=== PATIENT | male | born 1995 | race Native Hawaiian/Other Pacific Islander ===

== ENCOUNTER 2017-06-08 14:18 | Emergency (ER) | payer OTHER ==
[~2017-06-08] VITALS: Ht 167.6 cm; Wt 89.4 kg
== END 2017-06-08 16:42 | disposition home or self-care (01) ==
LOC: ED 14:18
DX: S67.191A Crushing injury of left index finger, initial encounter (principal); W23.0XXA Caught, crushed, jammed, or pinched between moving objects, initial encounter; Y92.098 Other place in other non-institutional residence as the place of occurrence of the external cause
CPT/HCPCS: 96372; 99283; J1170; J7040

== ENCOUNTER 2019-11-30 19:37 | Outpatient (CLI) | payer OTHER ==
[2019-11-30 21:07] LABS: PLATELET COUNT 216 K/uL (142-355)
[2019-11-30 21:18] LABS: POTASSIUM 3.9 mmol/L (3.6-5.2)
== END 2019-11-30 21:34 | disposition home or self-care (01) ==
LOC: LABW 19:37
PROVIDERS: Internal Medicine Hematology & Oncology
DX: C71.6 Malignant neoplasm of cerebellum (principal)
CPT/HCPCS: 36415; 80053; 83735; 85027

== ENCOUNTER 2019-12-14 18:47 | Outpatient (CLI) | payer OTHER ==
[2019-12-14 19:03] LABS: PLATELET COUNT 220 K/uL (142-355)
[2019-12-14 23:55] LABS: POTASSIUM 4.1 mmol/L (3.6-5.2)
== END 2019-12-14 19:43 | disposition home or self-care (01) ==
LOC: LABW 18:47
PROVIDERS: Internal Medicine Hematology & Oncology
DX: C71.6 Malignant neoplasm of cerebellum (principal)
CPT/HCPCS: 36415; 80053; 83735; 85027

== ENCOUNTER 2020-01-20 19:42 | Outpatient (CLI) | payer OTHER | END 2020-01-20 20:51 | disposition home or self-care (01) | LOC: LABW 19:42 | PROVIDERS: Internal Medicine Hematology & Oncology | DX: C71.6 Malignant neoplasm of cerebellum (principal) | CPT/HCPCS: 36415; 80053 ==

== ENCOUNTER 2020-02-17 18:08 | Outpatient (CLI) | payer OTHER ==
[2020-02-17 19:17] LABS: PLATELET COUNT 177 K/uL (142-355)
== END 2020-02-17 19:24 | disposition home or self-care (01) ==
LOC: LABW 18:08
PROVIDERS: Internal Medicine Hematology & Oncology
DX: C71.6 Malignant neoplasm of cerebellum (principal)
CPT/HCPCS: 36415; 80053; 85007; 85027

== ENCOUNTER 2020-04-04 12:07 | Outpatient (CLI) | payer OTHER ==
[2020-04-04 12:46] LABS: PLATELET COUNT 16 K/uL (142-355)
== END 2020-04-04 19:27 | disposition home or self-care (01) ==
LOC: LABW 12:07
PROVIDERS: Internal Medicine Hematology & Oncology
DX: D61.810 Antineoplastic chemotherapy induced pancytopenia (principal)
CPT/HCPCS: 36415; 85007; 85027

== ENCOUNTER 2020-05-10 13:56 | Outpatient (CLI) | payer OTHER | END 2020-05-10 23:55 | disposition home or self-care (01) | LOC: LABW 13:56 → US 13:56 | DX: R74.8 Abnormal levels of other serum enzymes (principal); R11.2 Nausea with vomiting, unspecified; R63.4 Abnormal weight loss; C71.6 Malignant neoplasm of cerebellum ==

== ENCOUNTER 2020-06-08 13:43 | Outpatient (CLI) | payer OTHER ==
[2020-06-08 14:10] LABS: PLATELET COUNT 104 K/uL (142-355)
[2020-06-08 14:36] LABS: POTASSIUM 4.7 mmol/L (3.6-5.2)
== END 2020-06-08 21:33 | disposition home or self-care (01) ==
LOC: LAB 13:43
PROVIDERS: Internal Medicine
DX: E43 Unspecified severe protein-calorie malnutrition (principal)
CPT/HCPCS: 80053; 83735; 84100; 84134; 84478; 85007; 85027

== ENCOUNTER 2020-06-15 14:21 | Outpatient (CLI) | payer OTHER ==
[2020-06-15 15:10] LABS: PLATELET COUNT 116 K/uL (142-355)
[2020-06-15 18:04] LABS: POTASSIUM 4.3 mmol/L (3.6-5.2)
== END 2020-06-15 20:28 | disposition home or self-care (01) ==
LOC: LAB 14:21
PROVIDERS: Internal Medicine
DX: E43 Unspecified severe protein-calorie malnutrition (principal)
CPT/HCPCS: 80053; 83735; 84100; 85027

== ENCOUNTER 2020-06-22 13:45 | Outpatient (CLI) | payer OTHER ==
[2020-06-22 13:54] LABS: PLATELET COUNT 130 K/uL (142-355)
[2020-06-22 14:18] LABS: POTASSIUM 4.2 mmol/L (3.6-5.2)
== END 2020-06-22 19:10 | disposition home or self-care (01) ==
LOC: LAB 13:45
PROVIDERS: Internal Medicine
DX: E43 Unspecified severe protein-calorie malnutrition (principal)
CPT/HCPCS: 80053; 83735; 84100; 85027

== ENCOUNTER 2020-07-01 13:54 | Outpatient (CLI) | payer OTHER ==
[2020-07-01 14:32] LABS: POTASSIUM 3.9 mmol/L (3.6-5.2)
[2020-07-01 15:12] LABS: PLATELET COUNT 150 K/uL (142-355)
== END 2020-07-01 20:03 | disposition home or self-care (01) ==
LOC: LAB 13:54
PROVIDERS: Internal Medicine Gastroenterology
DX: E43 Unspecified severe protein-calorie malnutrition (principal)
CPT/HCPCS: 80053; 82248; 83735; 84100; 85027; 85610

== ENCOUNTER 2020-07-06 11:08 | Outpatient (CLI) | payer OTHER ==
[2020-07-06 11:23] LABS: PLATELET COUNT 137 K/uL (142-355)
[2020-07-06 11:29] LABS: POTASSIUM 3.9 mmol/L (3.6-5.2)
== END 2020-07-06 19:45 | disposition home or self-care (01) ==
LOC: LAB 11:08
PROVIDERS: Internal Medicine
DX: E43 Unspecified severe protein-calorie malnutrition (principal)
CPT/HCPCS: 80053; 83735; 84134; 84478; 85027

== ENCOUNTER 2020-07-20 15:24 | Outpatient (CLI) | payer OTHER | END 2020-07-20 21:31 | disposition home or self-care (01) | LOC: US 15:24 | DX: I82.592 Chronic embolism and thrombosis of other specified deep vein of left lower extremity (principal) ==

== ENCOUNTER 2020-08-12 09:28 | Outpatient (CLI) | payer OTHER | END 2020-08-12 23:53 | disposition home or self-care (01) | LOC: US 09:28 | DX: R10.9 Unspecified abdominal pain (principal) ==

== ENCOUNTER 2020-09-21 09:54 | Outpatient (CLI) | payer OTHER ==
[2020-09-21 10:31] LABS: PLATELET COUNT 196 K/uL (142-355)
== END 2020-09-21 20:09 | disposition home or self-care (01) ==
LOC: RAD 09:54
PROVIDERS: Podiatrist
DX: Z01.810 Encounter for preprocedural cardiovascular examination (principal); Z01.811 Encounter for preprocedural respiratory examination; Z01.812 Encounter for preprocedural laboratory examination
CPT/HCPCS: 36415; 80053; 85027; 93005

== ENCOUNTER 2021-02-22 14:38 | Emergency (ER) | payer OTHER ==
[~2021-02-22] VITALS: Ht 165.1 cm; Wt 74.8 kg
[2021-02-22 15:58] VITALS: TEMP 98.9
[2021-02-22 16:00] VITALS: BP 114/68
== END 2021-02-22 16:05 | disposition home or self-care (01) ==
LOC: ED 14:41
DX: R45.1 Restlessness and agitation (principal); R45.4 Irritability and anger
CPT/HCPCS: 99283

== ENCOUNTER 2021-10-05 08:09 | Outpatient (CLI) | payer OTHER | END 2021-10-05 18:56 | disposition home or self-care (01) | LOC: NM 08:09 | PROVIDERS: ATTEND Nurse Practitioner Family | DX: R74.8 Abnormal levels of other serum enzymes (principal) | CPT/HCPCS: A9537 ==

== ENCOUNTER 2021-10-26 11:29 | Outpatient (CLI) | payer OTHER | END 2021-10-26 18:55 | disposition home or self-care (01) | LOC: LABW 11:29 | PROVIDERS: ATTEND Internal Medicine Hematology & Oncology | DX: R79.0 Abnormal level of blood mineral (principal) | CPT/HCPCS: 36415; 82525 ==

== ENCOUNTER 2021-12-13 12:17 | Outpatient (CLI) | payer OTHER ==
[2021-12-13 12:52] LABS: PLATELET COUNT 195 K/uL (142-355)
[2021-12-13 13:25] LABS: POTASSIUM 3.7 mmol/L (3.6-5.2)
== END 2021-12-13 18:57 | disposition home or self-care (01) ==
LOC: LABW 12:17
PROVIDERS: ATTEND Neurological Surgery
DX: K21.9 Gastro-esophageal reflux disease without esophagitis (principal)
CPT/HCPCS: 36415; 80053; 82784; 83516; 85027; 86140

== ENCOUNTER 2023-02-26 15:28 | Outpatient (CLI) | payer OTHER | END 2023-02-26 19:22 | disposition home or self-care (01) | LOC: RAD 15:28 | PROVIDERS: ATTEND Nurse Practitioner Family | DX: J18.9 Pneumonia, unspecified organism (principal) ==

== ENCOUNTER 2023-03-13 10:27 | Outpatient (CLI) | payer OTHER | END 2023-03-13 19:04 | disposition home or self-care (01) | LOC: RAD 10:27 | PROVIDERS: ATTEND Nurse Practitioner Family | DX: M25.532 Pain in left wrist (principal) ==